=== PATIENT | female | born 1980 | race Caucasian/White ===

== ENCOUNTER 2016-10-08 05:48 | Inpatient (IN) ==
[2016-10-08] MEDS ORDERED: Ringers Solution, Lactated 1,000 ML ONE ×2 (06:04→07:17)
[2016-10-08] MEDS ORDERED: Ondansetron 4 MG/2 ML VIAL IVP PRN ×2 (06:21→11:36)
[2016-10-08] MEDS ORDERED: Metoclopramide 10 MG/2 ML VIAL IVP PRN ×2 (06:21→11:36)
[2016-10-08] MEDS ORDERED: Famotidine 20 MG/2 ML VIAL IVP PRN (06:21)
[2016-10-08] MEDS ORDERED: Naloxone 0.4 MG/ML INJ IVP PRN (06:21)
[2016-10-08] MEDS ORDERED: Ringers Solution, Lactated 1,000 ML IVC SCH (06:30)
[2016-10-08 06:31] LABS: Basophils % 0.2 %; Eosinophils # 0.1 K/mcL (0.0-0.6); Eosinophils % 0.7 %; Hemoglobin 11.1 g/dL (11.5-15.4); Lymphocytes # 3.1 K/mcL (0.6-4.6); Lymphocytes % 24.8 %; Mean Corpuscular HGB Conc 33.6 g/dL (31.6-35.5); Mean Corpuscular Hemoglobin 29.7 pg (28.0-33.3); Mean Corpuscular Volume 88.2 fL (83.0-100.0); Mean Platelet Volume 11.6 fL (9.4-12.4); Monocytes # 0.9 K/mcL (0.0-1.3); Neutrophils # 8.2 K/mcL (1.6-8.9); Platelet Count 159 K/mcL (140-400); Red Blood Count 3.74 M/mcL (3.82-4.97); Red Cell Distribution Width 12.3 % (11.5-14.5); Segmented Neutrophils % 66.3 %
[2016-10-08] MEDS ORDERED: ceFAZolin 2,000 MG in D5% in Water 100 ML IVPB ONE (06:43)
[2016-10-08] MEDS ORDERED: *HR* Meperidine 25 MG/ML SYRINGE IVP PRN (06:51)
[2016-10-08] MEDS ORDERED: *HR* HYDROmorphone (PF) 1 MG/ML SYRINGE IVP PRN ×2 (06:51→13:08)
[2016-10-08] MEDS ORDERED: *HR* Promethazine 25 MG/ML VIAL IVP PRN (06:51)
--- NOTE | 2016-10-08 06:54 | Anesthesia Evaluation PreOp ---
Date of Encounter: 10/08/16 Time of Encounter: 06:51 - Past History Planned Operation: repeat Cardiac History: Denies any Significant Hx Pulmonary History: Denies Any Significant HX PRODUCT APPLICATIONS ENGINEER History: Other (bilateral fingers numbness, and occ right hip pain that ascends to mid back not position dependent. no decending radiculopathy) Other Medical History: Denies Any Significant HX Anesthesia History: No Prior Anesthetic Complications, Past Anesthesia (occ PONV post generals) Alcohol Use: none Drug use: none Medications and Allergies Escitalopram [Lexapro] 20 mg PO 10/08/16 [History] Tablet 1 tab PO DAILY 10/08/16 [History] Allergies No Known Allergies Allergy (Verified 10/08/16 06:21) Anesthesia Results - Labs 10/08/16 06:28 Anesthesia Exam - HEENT Pupil (Motor): Pupils equal Mallampati: II Teeth: Normal Oral Opening: Greater than 3 - PRODUCT APPLICATIONS ENGINEER LOC: Oriented PRODUCT APPLICATIONS ENGINEER Motor: Normal RUE, Normal LUE, Normal RLE, Normal LLE, Normal Face PRODUCT APPLICATIONS ENGINEER Sensory: Normal: RUE, LUE, RLE, LLE, Face - Cardiac Rhythm: Regular Murmur: None - Pulmonary Breath Sounds: bilateral Clear Respiratory Effort: Symmetrical Anesthesia Assess/Plan ASA Score: 2 Modified Elly Scale for Level of Consciousness: Cooperative, oriented, and tranquil Anesthetic Plan: General, Regional Monitoring Plan: Standard Monitors Recovery Plan: PACU
--- NOTE | 2016-10-08 07:02 | History & Physical Report ---
Date of Encounter: 10/08/16 Time of Encounter: 07:01 24 Hour HP Update - Instructions Instructions: If the History and Physical is less than 30 days old and was completed prior to A.M. admission and or procedure and has NOT been updated on calendar day of procedure please complete this update prior to performing procedure. - Update Patient reports changes in Medical Condition: No Changes in examination, assessment, or condition: No Changes in Medication: No Preop tests/diagnostics Reviewed: Yes Surgery Remains Indicated: Yes Consent for Planned Operative Procedure(s) Verified: Yes - Pre-Operative Checklist Preoperative Checklist Indicated: Yes Prophylactic Antibiotic Ordered: Yes Home Medications Include Beta Nilesh: No Is VTE Prophylaxis Indicated?: Yes
[2016-10-08] MEDS ORDERED: *HR* Phenylephrine 10 MG/ML VIAL ONE (07:16)
[2016-10-08] MEDS ORDERED: *HR* FentaNYL (PF) 100 MCG/2 ML VIAL ONE (07:16)
[2016-10-08] MEDS ORDERED: EPHEDrine 50 MG/ML VIAL ONE (07:16)
[2016-10-08] MEDS ORDERED: *HR* Oxytocin 10 UNIT/ML VIAL IM ONE (07:16)
[2016-10-08] MEDS ORDERED: *HR* Morphine Sulfate/PF 5 MG/10 ML AMPUL ONE (07:16)
[2016-10-08] MEDS ORDERED: Ondansetron 4 MG/2 ML VIAL ONE (07:52)
--- NOTE | 2016-10-08 09:02 | OB/GYN Procedure Note ---
Section - Date of procedure: 10/08/16 Preop diagnosis: desires repeat Post-op diagnosis: same Procedure: repeat low transverse Surgeon: Francesca Moore Estimated blood loss (cc): 400 Chimney Supervisor Brick: Nader Waldron Anesthesia Type: Spinal section complications: none Disposition: L&D Recovery Room Specimens: Placenta, Cord blood - Infant (s) A Delivery Date: 10/08/16 Infant Delivery Time: : Presentation: vertex Position: AMIRA Route of delivery: other Gender: Female Viability: Viable Pounds: 7 Ounces: 11 at 1 minute: 7 at 5 minutes: 7 Specimens collected: cord blood Placenta: complete extraction Cord: 3 umbilical vessels - Narrative Narrative: Patient was taken to the operating room and placed in supine position with left uterine displacement following the administration of spinal anesthetic. Skin was then prepped and draped in usual sterile fashion, and a timeout procedure was performed. A Pfannenstiel incision was performed through the previous surgical scar, and extended down to the fascial layer until the abdominal cavity was entered. A bladder flap was then gently created with sharp dissection. A low transverse uterine incision was performed and extended bilaterally with bandage scissors. The membranes were then ruptured with clear fluid present. A viable female was delivered from a vertex presentation with scores of 7 and 7 at 1 and 5 minutes respectively and the infant weighed 7 pounds, 11 ounces. The cord was clamped and cut, and the was handed to the nursery team. A sample of cord blood was obtained and the placenta was manually removed. The uterine cavity was wiped clean with wet lap sponge. The uterine incision was closed in a layered fashion with 0 Vicryl suture in a running locking fashion. Good hemostasis was noted The Paracolic gutters were then gently wiped clean with wet lap sponge. Inspection was then performed with good hemostasis still noted. The fascial layer was closed with 0 PDS Stratafix suture in a running nonlocking fashion. The subcutaneous layer was irrigated with sterile water and then closed with 4-0 Vicryl suture in a running nonlocking fashion, and continuing to close the skin in a running subcuticular fashion. A piece of Dermabond mesh was then applied over the incision site. Patient tolerated procedure well, all sponge needle and instrument counts reported as correct. Estimated blood loss was 400 mL. The urine in the Hope catheter was clear and yellow, and she was taken to recovery room in stable condition.
[2016-10-08] MEDS ORDERED: Simethicone 80 MG TAB.CHEW PO PRN (11:36)
[2016-10-08] MEDS ORDERED: Oxytocin 20 units/ LR 1000 mL 20 UNIT/1,000 ML BAG IVC SCH (11:36)
[2016-10-08] MEDS ORDERED: Measles/Mumps/Rubella Vacc 0.5 ML VIAL SQ ONE (11:36)
[2016-10-08] MEDS ORDERED: Sennosides 8.6 MG TABLET PO PRN (11:36)
[2016-10-08] MEDS ORDERED: *HR* Nalbuphine 20 MG/ML AMPUL IVP PRN (13:08)
[2016-10-08] MEDS ORDERED: *HR* Morphine 2 MG/ML SYRINGE IVP PRN (13:08)
--- NOTE | 2016-10-08 13:08 | Anesthesia Evaluation Post Op ---
Date of Encounter: 10/08/16 Time of Encounter: 13:04 - Vital Signs Vital Signs: vss - Lungs Lungs: Clear Ascult./Percussion - Airway Airway: Non-obstructed - Mental Status Mental Status: Alert & Oriented, Answers Appropriately - Pain Pain Scale used: Cody (Faces) (states just sore, no NSAIDs yet, to be given,) - Nausea Vomiting Nausea Vomiting: Not Present - Hydration Hydration: Ice chips
[2016-10-08] MEDS: Ibuprofen 600 MG TABLET PO PRN (13:29)
[2016-10-08] MEDS: *HR* OxyCODONE/APAP 5/325 TABLET PO PRN ×2 (17:40→22:05)
[2016-10-09] MEDS: Ibuprofen 600 MG TABLET PO PRN ×3 (00:49→19:26)
[2016-10-09 06:24] LABS: Basophils % 0.2 %; Eosinophils # 0.1 K/mcL (0.0-0.6); Eosinophils % 0.6 %; Hematocrit 33.9 % (35.3-44.9); Hemoglobin 11.3 g/dL (11.5-15.4); Immature Granulocytes % 0.6 % (0-4); Lymphocytes # 2.2 K/mcL (0.6-4.6); Lymphocytes % 17.7 %; Mean Corpuscular HGB Conc 33.3 g/dL (31.6-35.5); Mean Corpuscular Hemoglobin 30.1 pg (28.0-33.3); Mean Corpuscular Volume 90.2 fL (83.0-100.0); Mean Platelet Volume 11.1 fL (9.4-12.4); Monocytes # 0.7 K/mcL (0.0-1.3); Monocytes % 5.5 %; Neutrophils # 9.4 K/mcL (1.6-8.9); Platelet Count 134 K/mcL (140-400); Red Blood Count 3.76 M/mcL (3.82-4.97); Red Cell Distribution Width 12.6 % (11.5-14.5); Segmented Neutrophils % 75.4 %
[2016-10-09] MEDS: Prenatal Vit/FA 1 EACH TABLET PO SCH (08:16)
--- NOTE | 2016-10-09 09:23 | OB/GYN Progress Note ---
Date of Encounter: 10/09/16 Time of Encounter: 09:21 - Assessment and Plan (1) Status post delivery Current Visit: Yes Status: Acute s/p RC/S POD #1, doing well, ambulation encouraged, aim for discharge tomorrow AM, cont current inpt care Subjective - Subjective Patient reports: appetite normal, voiding normally, pain well controlled, ambulating normally [place]: doing well Objective - Vital Signs Latest vital signs: Vital Signs Temp Pulse Resp BP Pulse Ox 10/09/16 08:22 14 10/09/16 08:10 98.0 F 75 16 124/76 97 10/09/16 04:30 97.9 F 74 14 123/82 97 10/09/16 00:50 97.7 F 73 16 111/71 97 10/08/16 19:45 97.8 F 73 14 119/79 99 10/08/16 14:30 97.8 F 86 16 126/76 95 10/08/16 13:30 97.6 F 83 16 130/61 95 10/08/16 12:30 97.6 F 88 16 116/79 95 10/08/16 12:00 97.5 F L 76 16 123/77 95 10/08/16 11:30 97.9 F 80 16 107/59 95 Intake and Output 10/08/16 10/09/16 10/09/16 23:59 07:59 15:59 Intake Total 1550 / 1550 300 / 300 Output Total 1900 / 1900 Balance 1550 / 1550 -1900 / -1900 300 / 300 Intake: IV Fluids 850 / 850 Pitocin 20 unit In 1,000 850 / 850 ml @ 125 mls/hr IVC .Q8H [facility] Rx#:[id number] Oral 700 / 700 300 / 300 Output: Catheter 1900 / 1900 Other: Weight 93.4 kg Patient Weight 10/09/16 23:59 Weight 93.4 kg - Exam Lungs: bilateral: normal Chest: Normal S1, Normal S2 Extremities: Present: normal Abdomen: Present: normal appearance Incision: Present: normal, dry, intact Uterus: Present: normal - Labs Labs: Laboratory Results - last 24 hr 10/09/16 06:13 WBC 12.5 H RBC 3.76 L Hgb 11.3 L Hct 33.9 L MCV 90.2 MCH 30.1 MCHC 33.3 RDW 12.6 Plt Count 134 L MPV 11.1 Immature Gran % 0.6 Seg Neutrophils % 75.4 Lymphocytes % 17.7 Monocytes % 5.5 Eosinophils % 0.6 Basophils % 0.2 Neutrophils # 9.4 H Lymphocytes # 2.2 Monocytes # 0.7 Eosinophils # 0.1 Basophils # 0.0
[2016-10-09] MEDS: *HR* OxyCODONE/APAP 5/325 TABLET PO PRN ×3 (13:44→23:19)
[2016-10-10] MEDS: *HR* OxyCODONE/APAP 5/325 TABLET PO PRN ×2 (04:53→08:51)
[2016-10-10] MEDS: Ibuprofen 600 MG TABLET PO PRN (04:53)
--- NOTE | 2016-10-10 07:56 | Discharge Summary ---
Date of Encounter: 10/10/16 Time of Encounter: 07:55 - Discharge Diagnosis (1) Status post delivery Priority: Primary Status: Resolved - Discharge Medications Prescriptions: OxyCODONE/APAP 5/325 [Percocet 5/325 MG] 1 each PO Q4HR PRN #40 tab PRN Reason: Moderate pain 4-6 Ibuprofen [Motrin] 600 mg PO Q6HR PRN #40 tab PRN Reason: Cramping Home Medications: Escitalopram [Lexapro] 20 mg PO 10/08/16 [History] Tablet 1 tab PO DAILY 10/08/16 [History] Ibuprofen [Motrin] 600 mg PO Q6HR PRN #40 tab 10/10/16 [Rx] OxyCODONE/APAP 5/325 [Percocet 5/325 MG] 1 each PO Q4HR PRN #40 tab 10/10/16 [Rx ] Allergies/Adverse Reactions: Allergies No Known Allergies Allergy (Verified 10/08/16 06:21) Data Procedures and tests throughout hospitalization: Laboratory Tests 10/08/16 10/09/16 06:28 06:13 WBC 12.4 H 12.5 H RBC 3.74 L 3.76 L Hgb 11.1 L 11.3 L Hct 33.0 L 33.9 L MCV 88.2 90.2 MCH 29.7 30.1 MCHC 33.6 33.3 RDW 12.3 12.6 Plt Count 159 134 L MPV 11.6 11.1 Immature Gran % 1.0 0.6 Seg Neutrophils % 66.3 75.4 Lymphocytes % 24.8 17.7 Monocytes % 7.0 5.5 Eosinophils % 0.7 0.6 Basophils % 0.2 0.2 Neutrophils # 8.2 9.4 H Lymphocytes # 3.1 2.2 Monocytes # 0.9 0.7 Eosinophils # 0.1 0.1 Basophils # 0.0 0.0 Date of admission: 10/08/16 05:48 Primary care physician: PCP NONE - Patient Status Disposition: Home, Self-Care Condition: Good Functional capacity at discharge: independent ambulation Overall status at discharge: patient is progressing back to baseline - Discharge Instructions Follow Up With: NONE,PCP [Primary Care Provider] - - Diet and Activity Activity: increase activity as tolerated Diet: advance to your usual diet Hospital Course CREDIT RISK ANALYST Time Attestation: Total time spent providing and/or coordinating discharge services: Exam - Constitutional Vitals: Temp Pulse Resp BP Pulse Ox 98.2 F 72 20 125/79 98 10/09/16 19:35 10/09/16 19:35 10/09/16 19:35 10/09/16 19:35 10/09/16 19:35 General appearance IM: A&O X 3 - Respiratory Respiratory exam: Present: CTAB - Cardiovascular Cardiovascular exam IM: Present: RRR - GI/Abdominal GI/Abdominal exam IM: normal bowel sounds Incision: normal, intact - Uterus Position: 2 Fingers Above Umbilicus - Extremities Exam Extremities exam IM: Present: full ROM - Neurological Exam Neurological exam: CN II-XII intact - VTE Documentation of Mechanical Device: Intermittent pneumatic compression device - Attending Attestation ирина covarrubias md facog
[2016-10-10] MEDS: Prenatal Vit/FA 1 EACH TABLET PO SCH (08:51)
[2016-10-10 09:00] VITALS: BP 130/84
== END 2016-10-10 11:12 | disposition home or self-care (01) | DRG 540 ==
LOC: 1NENULAB 05:48 → 1NENUOBS 11:30

== ENCOUNTER → 2018-07-11 17:40 | Observation (INO) ==
--- NOTE | 2018-07-11 16:58 | OB/GYN Progress Note ---
Date of Encounter: 07/11/18 Time of Encounter: 16:57 - Assessment and Plan (1) 37 weeks gestation of Current Visit: Yes Status: Acute Reactive NST Urine pending Patient declines pain medication and/or therapeutic rest Serial vaginal exams pending Anticipate discharge home with labor precautions Follow up in office with routine care and PRN POC per consult with Dr Dilsa (2) Lower back pain Current Visit: Yes Status: Acute Qualifiers: Chronicity: acute Back pain laterality: right Sciatica presence: without sciatica Qualified Code(s): M54.5 - Low back pain (3) NST (non-stress test) reactive Current Visit: Yes Status: Acute Subjective - Subjective Principal diagnosis: Back pain Interval history: Ms Jairo tinoco at 37 weeks and 6 days presents to triage from the office with severe back and right flank pain. She states positive movement. She denies headaches, vision changes, epigastric pain, leaking of fluid, and vaginal discharge/bleeding. She states pain started earlier today and has progressively gotten worse. Per patient she does not dilate with any of her pregnancies and her first ended in a stat c/s due to distress because "her head was being pushed against my pubic bone". Antepartum ROS: movement normal, no contractions Objective - Vital Signs Vital Signs: Intake and Output 07/11/18 07/11/18 07/11/18 07:59 15:59 23:59 Other: Weight 96.615 kg Patient Weight 07/11/18 23:59 Weight 96.615 kg - Exam FHR comments: No contractions per monitor, uterus palpates soft FHTs 120 wtih moderate variability and 15 x 15 accels Abdomen: Present: normal appearance, soft, gravid Uterus: Present: normal. Absent: firm, tenderness Cervical dilation: Closed thick and high per exam in office Comments: No CVA tenderness with palpation
[2018-07-11 17:53] LABS: Bilirubin,Urine Negative (Negative); Blood,Urine Negative (Negative); Clarity,Urine Clear (Clear); Color,Urine Yellow (Yellow); Glucose,Urine (UA) Normal (Normal); Ketones,Urine Trace mg/dL (Negative); Leukocyte Esterase,Urine Negative (Negative); Nitrite,Urine Negative (Negative); Protein,Urine Negative (Neg-Trace); Specific Gravity,Urine 1.009 (1.010-1.025); Urobilinogen,Urine Normal (Normal)
[2018-07-11 18:00] LABS: Amphetamine Screen,Urine Negative ng/mL (Cutoff=1000); Barbiturate Screen,Urine Negative ng/mL (Cutoff=200); Benzodiazepines Screen,Urine Negative ng/mL (Cutoff=200); Cannabinoid Screen,Urine Negative ng/mL (Cutoff = 50); Cocaine Screen,Urine Negative ng/mL (Cutoff= 300); Opiate Screen,Urine Negative ng/mL (Cutoff=300); Phencyclidine Screen,Urine Negative ng/mL (Cutoff=25)
== END | disposition home or self-care (01) ==
LOC: 1NENULAB
PROVIDERS: ADMIT Advanced Practice Midwife; ATTEND Advanced Practice Midwife

== ENCOUNTER 2018-07-19 05:47 | Inpatient (IN) ==
[2018-07-19] MEDS ORDERED: Metoclopramide 10 MG/2 ML VIAL IVP PRN ×2 (06:19→14:12)
[2018-07-19] MEDS ORDERED: Famotidine 20 MG/2 ML VIAL IVP PRN (06:19)
[2018-07-19] MEDS ORDERED: Naloxone 0.4 MG/ML INJ IVP PRN (06:19)
[2018-07-19] MEDS ORDERED: Ringers Solution, Lactated 1,000 ML IVC SCH (06:30)
[2018-07-19 06:38] LABS: Amphetamine Screen,Urine Negative ng/mL (Cutoff=1000); Barbiturate Screen,Urine Negative ng/mL (Cutoff=200)
[2018-07-19 06:39] LABS: Benzodiazepines Screen,Urine Negative ng/mL (Cutoff=300); Cannabinoid Screen,Urine Negative ng/mL (Cutoff = 50); Cocaine Screen,Urine Negative ng/mL (Cutoff= 300); Opiate Screen,Urine Negative ng/mL (Cutoff=300); Phencyclidine Screen,Urine Negative ng/mL (Cutoff=25)
[2018-07-19 06:40] LABS: Basophils % 0.3 %; Eosinophils # 0.1 K/mcL (0.0-0.6); Eosinophils % 0.4 %; Hematocrit 32.3 % (35.3-44.9); Hemoglobin 10.9 g/dL (11.5-15.4); Immature Granulocytes % 0.7 % (0-4); Lymphocytes # 2.8 K/mcL (0.6-4.6); Lymphocytes % 23.9 %; Mean Corpuscular HGB Conc 33.7 g/dL (31.6-35.5); Mean Corpuscular Hemoglobin 30.3 pg (28.0-33.3); Mean Corpuscular Volume 89.7 fL (83.0-100.0); Mean Platelet Volume 11.2 fL (9.4-12.4); Monocytes # 0.8 K/mcL (0.0-1.3); Monocytes % 6.5 %; Neutrophils # 7.9 K/mcL (1.6-8.9); Platelet Count 171 K/mcL (140-400); Red Cell Distribution Width 12.1 % (11.5-14.5); Segmented Neutrophils % 68.2 %
--- NOTE | 2018-07-19 07:12 | OB/GYN History & Physical ---
Date of Encounter: 07/19/18 Time of Encounter: 07:07 Assessment and Plan (1) 39 weeks gestation of Current visit: Yes Status: Acute (2) Maternal care for low transverse scar from previous delivery Current visit: Yes Status: Acute (3) AMA (advanced maternal age) multigravida 35+ Current visit: Yes Status: Acute Qualifiers: Trimester: third trimester Qualified Code(s): O09.523 - Supervision of elderly multigravida, third trimester (4) Rubella non-immune status, antepartum Current visit: Yes Status: Acute History of Present Illness Chief complaint: Presents for repeat section HPI: Ms. Gill is a 38 year old female with EDC 07/26/18 at 39 weeks who presents to L&D for repeat C/S and sterilization. 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 O positive, Varicella Immune, Rubella Non-Immune, Rh positive. GBS negative. Past Med Surg Social Fam HX - Past Medical History Medical history: no medical history Additional medical history: hypoglycemia Psychiatric history: depression - Past Surgical History Surgical History: , other Additional surgical history: tummy tuck, breast augmentation - Social History Smoking Status: Never smoker Smokeless Tobacco Status: No Alcohol use: none Drug use: none - Family History Mother Adopted: No Living Status: Still Living Hx Family Cardiac Disorders: Yes (htn) Hx Family Respiratory Disorders: Yes Hx Family Cancer: No Hx Family GI Disorders: No Hx Family Genitourinary Disorders: No Hx Family Endocrine Disorder: No Hx Family Musculoskeletal Disorders: No Hx Family Neuromuscular Disorders: No Hx Family Neurologic Disorders: No Hx Family HEENT Disorders: No Hx Family Autoimmune Disorders: No Hx Family Reproductive Disorders: No Hx Family Psychosocial Disorders: No Hx Family Medical Disorders: No Obstetrical History - Pregnancies : 5 Medications and Allergies Tablet 1 tab PO DAILY 10/08/16 [History] Allergy/AdvReac Type Severity Reaction Status Date / Time No Known Allergies Allergy Verified 10/08/16 06:21 Review of System OB All systems PM: reviewed and no additional remarkable complaints except as stated (as related to ) Exam - Vital Signs Vital signs: Initial Vital Signs Pulse Resp BP 81 15 128/64 07/19/18 06:06 07/19/18 06:06 07/19/18 06:06 - Constitutional Constitutional: well developed, well nourished - HEENT HEENT: Normocephaly - Cardiovascular Cardiovascular exam: RRR - Abdomen Abdomen: Present: gravid Results Result Diagrams: 07/19/18 06:23 Abnormal lab results WBC 11.5 K/mcL (4.3-11.1) H 07/19/18 06:23 RBC 3.60 M/mcL (3.82-4.97) L 07/19/18 06:23 Hgb 10.9 g/dL (11.5-15.4) L 07/19/18 06:23 Hct 32.3 % (35.3-44.9) L 07/19/18 06:23 All other labs normal. - VTE Reasons for not Prescribing Prophylaxis: Treatment not Indicated - Low risk for VTE
--- NOTE | 2018-07-19 07:39 | Anesthesia Evaluation PreOp ---
Date of Encounter: 07/19/18 Time of Encounter: 07:25 - Past History Planned Operation: Spinal for repeat csection Cardiac History: Denies any Significant Hx Pulmonary History: Denies Any Significant HX COAL HAULER History: Denies Any Significant HX Other Medical History: Denies Any Significant HX, GERD, Other (HPV, anxiety, depression) Anesthesia History: No Prior Anesthetic Complications, Past Anesthesia (Liposuction, breast augmentation, abdominoplasty) : Yes Alcohol Use: none Drug use: none Medications and Allergies Tablet 1 tab PO DAILY 10/08/16 [History] Allergy/AdvReac Type Severity Reaction Status Date / Time No Known Allergies Allergy Verified 10/08/16 06:21 - Meds/Allergy Pre-op Review Medications Reviewed: Yes Allergies Reviewed: Yes Beta Blockers on Current Med List: No Anesthesia Results - Labs 07/19/18 06:23 Anesthesia Exam BP 116/70 P 75 R 16 T 98.8 Height: 5'9" Weight: 96.3kg NPO (# of Hours): 8 Pain Scale: 0 Pain Scale Used: Numeric (1 - 10) - HEENT Pupil (Motor): Pupils equal Mallampati: II Teeth: Normal Oral Opening: Greater than 3 - COAL HAULER LOC: Oriented COAL HAULER Motor: Normal RUE, Normal LUE, Normal RLE, Normal LLE, Normal Face COAL HAULER Sensory: Normal: RUE, LUE, RLE, LLE, Face - Cardiac Rhythm: Regular Murmur: None JVD: No Carotid Bruit: No - Pulmonary Breath Sounds: bilateral Clear Respiratory Effort: Symmetrical Anesthesia Assess/Plan ASA Score: 2 Level of consciousness: Cooperative Anesthetic Plan: Spinal Autologous Blood: Yes Monitoring Plan: Standard Monitors Recovery Plan: PACU
[2018-07-19] MEDS ORDERED: *HR* Morphine Sulfate/PF 10 MG/10 ML AMPUL ONE (07:46)
[2018-07-19] MEDS ORDERED: Ondansetron 4 MG/2 ML VIAL ONE (07:53)
[2018-07-19] MEDS ORDERED: *HR* Oxytocin 10 UNIT/ML VIAL IM ONE ×2 (07:53→09:17)
[2018-07-19] MEDS ORDERED: Dexamethasone 4 MG/ML VIAL ONE (07:53)
--- NOTE | 2018-07-19 08:41 | Anesthesia Procedures ---
Date of Encounter: 07/19/18 Time of Encounter: 08:06 Procedures: Anesthesia - Epidural/Spinal Patient ID/Chart reviewed: Yes Patient examined: Yes OB Eval: Gestational age: 39 OB Eval: : 5 OB Eval: Hx Para: 4 OB Eval: Contractions: Non-stressed pattern Consent Obtained: Yes Supplemental Oxygen: None/Room Air Site Prep: Aseptic Technique, Sterile prep and drape, Povidone-Iodine 1% Patient position: upright Local Anesthetic: Lidocaine 1% Amount of Local Anesthetic used: 5 Interspace Used: L3-L4 Blood: No CSF: Yes Paresthesia: No Spinal Needle Gauge: 25 Spinal Dose: Bupivicaine 0.75% 1.6ml Morphine 300mcg Procedure: Intrathecal dose administered 2nd pass in upright position. 1st pass patient movement. Pt tolerated well. T4 level. VSS Vitals + FHT's: See anesthesia record
[2018-07-19] MEDS ORDERED: Ringers Solution, Lactated 2,000 ML ONE (09:17)
--- NOTE | 2018-07-19 09:33 | OB/GYN Procedure Note ---
Section - Date of procedure: 07/19/18 Preop diagnosis: desires repeat , desires sterilization Post-op diagnosis: same Procedure: repeat low transverse, bilateral tubal ligation Surgeon: Francesca Moore Was there an assistant track coach present: No Anesthesia Type: Spinal section complications: none Disposition: L&D Recovery Room Specimens: Placenta, Cord blood, Right tube segment, Left tube segment - (s) Infant A Infant Delivery Date: 07/19/18 Infant Delivery Time: 08:31 Presentation: vertex Position: unknown Route of delivery: other Gender: Female Viability: Viable Pounds: 6 Ounces: 5 Gram Weight: 2855 kg at 1 minute: 7 at 5 minutes: 8 Shoulder Dystocia: not encountered Specimens collected: cord blood Placenta: complete extraction Cord: 3 umbilical vessels - Narrative Narrative: Patient was taken to the operating room and placed in supine position with left uterine displacement following the administration of spinal anesthetic. Skin was then prepped and draped in usual sterile fashion, and a timeout procedure was performed. A Pfannenstiel incision was performed removing the previous surgical scar, and extended down to the fascial layer until the abdominal cavity was entered. A low transverse uterine incision was performed and extended bilaterally with bandage scissors. The membranes were then ruptured with clear fluid present. A viable female infant was delivered from a vertex presentation with scores of 7 and 8 at 1 and 5 minutes respectively and the weighed 6 pounds and 5 ounces. The cord was clamped and cut, and the infant was handed to the nursery team. A sample of cord blood was obtained and the placenta was manually removed. The uterine cavity was wiped clean with wet lap sponge. The uterine incision was closed in a layered fashion with 0 Vicryl suture in a running locking fashion. Good hemostasis was noted.The patient and her were then asked if they still wanted to proceed with a tubal sterilization and they agreed. The left fallopian tube was first identified grasped and traced distally until the fimbriated end was seen and a distal portion tube was doubly ligated with 0 plain suture to incorporate the fimbriated end and the specimen was removed. Good hemostasis was noted and the procedure was repeated in a similar fashion for the right fallopian tube. Again good hemostasis was present. The Paracolic gutters were then gently wiped clean with wet lap sponge. Inspection was then performed with good hemostasis still noted. The fascial layer was closed with 0 PDS suture in a running nonlocking fashion. The subcutaneous layer was irrigated with sterile water and then closed with 3-0 chromic suture in a running, non-locking fashion. The superficial subcutaneous layer was then closed with 4-0 Vicryl suture in a running nonlocking fashion, and continuing to close the skin in a running subcuticular fashion. A piece of Dermabond mesh was then applied over the incision site. Patient tolerated procedure well, all sponge needle and instrument counts reported as correct. Estimated blood loss was 400 mL. The urine in the Hope catheter was clear and yellow, and she was taken to recovery room in stable condition.
[2018-07-19] MEDS ORDERED: *HR* OxyCODONE Immed Rel 5 MG TABLET PO PRN (09:41)
[2018-07-19] MEDS ORDERED: *HR* Promethazine 25 MG/ML VIAL IVP PRN (09:41)
[2018-07-19] MEDS ORDERED: Acetaminophen IV 1,000 MG/100 ML INFUS..BTL IVPB ONE (10:11)
[2018-07-19] MEDS ORDERED: Simethicone 80 MG TAB.CHEW PO PRN (14:12)
[2018-07-19] MEDS ORDERED: Measles/Mumps/Rubella Vacc 0.5 ML VIAL SQ ONE (14:12)
[2018-07-19] MEDS ORDERED: Ondansetron 4 MG/2 ML VIAL IVP PRN (14:12)
[2018-07-19] MEDS ORDERED: Oxytocin 20 units/ LR 1000 mL 20 UNIT/1,000 ML BAG IVC SCH (14:12)
[2018-07-19] MEDS: *HR* OxyCODONE/APAP 5/325 TABLET PO PRN ×2 (14:42→20:10)
--- NOTE | 2018-07-19 18:03 | Anesthesia Evaluation Post Op ---
Date of Encounter: 07/19/18 Time of Encounter: 12:00 - Vital Signs Vital Signs: Vital Signs Pulse Rate 81 07/19/18 06:06 Respiratory Rate 15 07/19/18 06:06 Blood Pressure 128/64 07/19/18 06:06 Temperature 98.1 F 07/19/18 17:07 Pulse Rate 76 07/19/18 17:07 Respiratory Rate 16 07/19/18 17:07 Blood Pressure 117/67 07/19/18 17:07 O2 Sat by Pulse Oximetry 97 07/19/18 17:07 - Lungs Lungs: Clear Ascult./Percussion - Airway Airway: Non-obstructed - Cardiovascular Regular Rate - Mental Status Mental Status: Alert & Oriented, Answers Appropriately - Pain Pain Scale: 4 Pain Scale used: Numeric (1 - 10) - Nausea Vomiting Nausea Vomiting: Not Present - Hydration Hydration: Tolerates oral liquids, Hope catheter - Discharge PostOp Status: Transfer Patient to floor
[2018-07-19] MEDS: Ibuprofen 600 MG TABLET PO PRN (20:08)
[2018-07-20] MEDS: *HR* OxyCODONE/APAP 5/325 TABLET PO PRN ×4 (03:12→20:30)
[2018-07-20] MEDS: Ibuprofen 600 MG TABLET PO PRN ×2 (03:12→16:24)
[2018-07-20 05:46] LABS: Basophils % 0.1 %; Eosinophils # 0.1 K/mcL (0.0-0.6); Eosinophils % 0.4 %; Hematocrit 30.9 % (35.3-44.9); Hemoglobin 10.5 g/dL (11.5-15.4); Immature Granulocytes % 0.7 % (0-4); Lymphocytes # 3.4 K/mcL (0.6-4.6); Lymphocytes % 24.3 %; Mean Corpuscular Hemoglobin 30.7 pg (28.0-33.3); Mean Corpuscular Volume 90.4 fL (83.0-100.0); Mean Platelet Volume 11.6 fL (9.4-12.4); Monocytes # 0.9 K/mcL (0.0-1.3); Monocytes % 6.8 %; Neutrophils # 9.3 K/mcL (1.6-8.9); Platelet Count 170 K/mcL (140-400); Red Blood Count 3.42 M/mcL (3.82-4.97); Red Cell Distribution Width 12.2 % (11.5-14.5); Segmented Neutrophils % 67.7 %
[2018-07-20] MEDS: Prenatal Vit/FA 1 EACH TABLET PO SCH (08:22)
--- NOTE | 2018-07-20 14:38 | OB/GYN Progress Note ---
Date of Encounter: 07/20/18 Time of Encounter: 08:17 - Assessment and Plan (1) Status post delivery Current Visit: Yes Status: Acute POD #1, Meeting milestones as expected. Lochia normal, no large clots noted. Pain well controlled with prescribed medication, admits to diffuse abdominal tenderness. Initial complaint of nausea, now resolved and tolerating normal diet. Denies passing gas, and has not yet had a BM, bowel sounds present. Voiding and ambulating without difficulty. well, baby's glucose being monitored. Continue with current management. Likely DC tomorrow. I have seen and evaluated this patient separately and agree with this assessment and plan. Thad Olivares CNM Subjective - Subjective Principal diagnosis: s/p Patient reports: appetite normal, voiding normally, pain well controlled, ambulating normally [place]: doing well (sugars being monitored dt initially being low), nursing well Objective - Vital Signs Latest vital signs: Vital Signs Temp Pulse Resp BP Pulse Ox 07/20/18 04:30 97.9 F 73 16 115/76 98 07/20/18 00:00 98.0 F 78 16 101/65 96 07/19/18 19:50 98.3 F 73 16 108/71 97 07/19/18 17:07 98.1 F 76 16 117/67 97 Intake and Output 07/19/18 07/20/18 07/20/18 23:59 07:59 15:59 Intake Total 600 / 600 Output Total 1600 / 1600 500 / 850 350 / 850 Balance -1600 / -1000 100 / -250 -350 / -250 Intake: Oral 600 / 600 Output: Urine 350 / 350 Emesis 700 / 700 Catheter 900 / 900 500 / 500 Other: # Voids 1 Weight 94.801 kg Patient Weight 07/20/18 23:59 Weight 94.801 kg - Exam Lungs: bilateral: normal Chest: Normal S1, Normal S2 Extremities: Present: normal, edema (non-pitting edema in feet) Abdomen: Present: soft, tenderness (mild diffuse tenderness to palpation) Incision: Present: normal, dry, intact. Absent: warm Uterus: Present: firm Fundal Height: 2 (fingers below umbilicus) - Labs Labs: Laboratory Results - last 24 hr 07/20/18 04:42 WBC 13.8 H RBC 3.42 L Hgb 10.5 L Hct 30.9 L MCV 90.4 MCH 30.7 MCHC 34.0 RDW 12.2 Plt Count 170 MPV 11.6 Immature Gran % 0.7 Seg Neutrophils % 67.7 Lymphocytes % 24.3 Monocytes % 6.8 Eosinophils % 0.4 Basophils % 0.1 Neutrophils # 9.3 H Lymphocytes # 3.4 Monocytes # 0.9 Eosinophils # 0.1 Basophils # 0.0
[2018-07-20] MEDS ORDERED: Lanolin 7 G OINT...G. TP PRN (17:00)
[2018-07-21 00:38] VITALS: BP 132/85
[2018-07-21] MEDS: Ibuprofen 600 MG TABLET PO PRN ×2 (00:52→06:44)
[2018-07-21] MEDS: *HR* OxyCODONE/APAP 5/325 TABLET PO PRN ×3 (00:52→11:19)
[2018-07-21] MEDS: Prenatal Vit/FA 1 EACH TABLET PO SCH (08:11)
--- NOTE | 2018-07-21 08:13 | Discharge Summary ---
Date of Encounter: 07/21/18 Time of Encounter: 08:12 - Discharge Diagnosis (1) Status post delivery Priority: Primary Status: Acute Comments: 38 y/o F POD4 or planned repeat C/S and tubal ligation recovering well and eager to go home. Reports pain well controlled on opioid medication and nausea resolved. She denies BM but admits to flatus and tolerating PO. Bleeding slowed and clots rare. Wound doing well with out bleeding. Breast feeding well but needed to supplement due to hypoglycemia in . (2) Breast feeding status of mother Priority: Secondary Status: Acute Comments: Pump at home (3) AMA (advanced maternal age) multigravida 35+ Priority: Secondary Status: Acute Qualifiers: Trimester: third trimester Qualified Code(s): O09.523 - Supervision of elderly multigravida, third trimester (4) Status post tubal ligation at time of delivery, current hospitalization Priority: Primary Status: Acute - Discharge Medications Prescriptions: New Docusate [Colace] 100 mg PO BID #60 capsule Simethicone [Gas-X] 80 mg PO TID PRN tab.chew PRN Reason: Dyspepsia Lanolin [Lansinoh] 1 appl TP TID PRN oint...g. PRN Reason: bilateral nipples Ibuprofen [Motrin] 600 mg PO Q6HR PRN #60 tablet PRN Reason: Cramping OxyCODONE/APAP 5/325 [Percocet 5/325 MG] 1 each PO Q4HR PRN 7 Days #20 tablet PRN Reason: Moderate pain 4-6 Ondansetron ODT [Zofran ODT] 4 mg SL Q8HR #14 tab.rapdis Prenat Vit Comb.10/Iron/FA/Dha [Vitafol-Ob+Dha Combo Pack] 1 each PO DAILY #30 combo..pkg Continued Tablet 1 tab PO DAILY #30 Home Medications: Docusate [Colace] 100 mg PO BID #60 capsule 07/21/18 [Rx] Ibuprofen [Motrin] 600 mg PO Q6HR PRN #60 tablet 07/21/18 [Rx] Lanolin [Lansinoh] 1 appl TP TID PRN oint...g. 07/21/18 [Rx] Ondansetron ODT [Zofran ODT] 4 mg SL Q8HR #14 tab.rapdis 07/21/18 [Rx] OxyCODONE/APAP 5/325 [Percocet 5/325 MG] 1 each PO Q4HR PRN 7 Days #20 tablet 07/21/18 [Rx] Prenat Vit Comb.10/Iron/FA/Dha [Vitafol-Ob+Dha Combo Pack] 1 each PO DAILY #30 combo..pkg 07/21/18 [Rx] Tablet 1 tab PO DAILY #30 07/21/18 [Rx] Simethicone [Gas-X] 80 mg PO TID PRN tab.chew 07/21/18 [Rx] Allergies/Adverse Reactions: Allergy/AdvReac Type Severity Reaction Status Date / Time No Known Allergies Allergy Verified 10/08/16 06:21 Data Procedures and tests throughout hospitalization: Laboratory Tests 07/19/18 07/19/18 07/19/18 06:23 06:23 10:36 WBC 11.5 H RBC 3.60 L Hgb 10.9 L Hct 32.3 L MCV 89.7 MCH 30.3 MCHC 33.7 RDW 12.1 Plt Count 171 MPV 11.2 Immature Gran % 0.7 Seg Neutrophils % 68.2 Lymphocytes % 23.9 Monocytes % 6.5 Eosinophils % 0.4 Basophils % 0.3 Neutrophils # 7.9 Lymphocytes # 2.8 Monocytes # 0.8 Eosinophils # 0.1 Basophils # 0.0 POC Glucose 96 Urine Opiates Screen Negative Ur Barbiturates Screen Negative Ur Phencyclidine Scrn Negative Ur Amphetamines Screen Negative U Benzodiazepines Scrn Negative Urine Cocaine Screen Negative U Marijuana (THC) Screen Negative Ur Drug Screen Interp See Below 07/20/18 04:42 WBC 13.8 H RBC 3.42 L Hgb 10.5 L Hct 30.9 L MCV 90.4 MCH 30.7 MCHC 34.0 RDW 12.2 Plt Count 170 MPV 11.6 Immature Gran % 0.7 Seg Neutrophils % 67.7 Lymphocytes % 24.3 Monocytes % 6.8 Eosinophils % 0.4 Basophils % 0.1 Neutrophils # 9.3 H Lymphocytes # 3.4 Monocytes # 0.9 Eosinophils # 0.1 Basophils # 0.0 POC Glucose Urine Opiates Screen Ur Barbiturates Screen Ur Phencyclidine Scrn Ur Amphetamines Screen U Benzodiazepines Scrn Urine Cocaine Screen U Marijuana (THC) Screen Ur Drug Screen Interp Date of admission: 07/19/18 05:47 Primary care physician: Chalo Ramos MD Discharging clinician: Bianca Coles date of discharge: 07/21/18 - Patient Status Disposition: Home, Self-Care Functional capacity at discharge: independent ambulation Overall status at discharge: patient is progressing back to baseline - Discharge Instructions Follow Up With: Chalo Ramos MD [Primary Care Provider] - Francesca Moore DO [Partnered Physician] - - Diet and Activity Activity: increase activity as tolerated Diet: advance to your usual diet Hospital Course Reason for admission: section Delivery: section Episiotomy: none Laceration: none Other procedures: tubal ligation complications: none Discharge diagnosis: IUP at term delivered baby: female Hospital course: Section - Date of procedure: 07/19/18 Preop diagnosis: desires repeat , desires sterilization Post-op diagnosis: same Procedure: repeat low transverse, bilateral tubal ligation Surgeon: Francesca Moore Was there an mobile unit assistant present: No Anesthesia Type: Spinal section complications: none Disposition: L&D Recovery Room Specimens: Placenta, Cord blood, Right tube segment, Left tube segment - Infant (s) Infant A Delivery Date: 07/19/18 Delivery Time: 08:31 Presentation: vertex Position: unknown Route of delivery: other Gender: Female Viability: Viable Pounds: 6 Ounces: 5 Gram Weight: 2855 kg at 1 minute: 7 at 5 minutes: 8 Shoulder Dystocia: not encountered Specimens collected: cord blood Placenta: complete extraction Cord: 3 umbilical vessels - Narrative Narrative: Patient was taken to the operating room and placed in supine position with left uterine displacement following the administration of spinal anesthetic. Skin was then prepped and draped in usual sterile fashion, and a timeout procedure was performed. A Pfannenstiel incision was performed removing the previous surgical scar, and extended down to the fascial layer until the abdominal cavity was entered. A low transverse uterine incision was performed and extended bilaterally with bandage scissors. The membranes were then ruptured with clear fluid present. A viable female infant was delivered from a vertex presentation with scores of 7 and 8 at 1 and 5 minutes respectively and the weighed 6 pounds and 5 ounces. The cord was clamped and cut, and the infant was handed to the nursery team. A sample of cord blood was obtained and the placenta was manually removed. The uterine cavity was wiped clean with wet lap sponge. The uterine incision was closed in a layered fashion with 0 Vicryl suture in a running locking fashion. Good hemostasis was noted.The patient and her were then asked if they still wanted to proceed with a tubal sterilization and they agreed. The left fallopian tube was first identified grasped and traced distally until the fimbriated end was seen and a distal portion tube was doubly ligated with 0 plain suture to incorporate the fimbriated end and the specimen was removed. Good hemostasis was noted and the procedure was repeated in a similar fashion for the right fallopian tube. Again good hemostasis was present. The Paracolic gutters were then gently wiped clean with wet lap sponge. Inspection was then performed with good hemostasis still noted. The fascial layer was closed with 0 PDS suture in a running nonlocking fashion. The subcutaneous layer was irrigated with sterile water and then closed with 3-0 chromic suture in a running, non-locking fashion. The superficial subcutaneous layer was then closed with 4-0 Vicryl suture in a running nonlocking fashion, and continuing to close the skin in a running subcuticular fashion. A piece of Dermabond mesh was then applied over the incision site. Patient tolerated procedure well, all sponge needle and instrument counts reported as correct. Estimated blood loss was 400 mL. The urine in the Hope catheter was clear and yellow, and she was taken to recovery room in stable condition. Time Attestation: Total time spent providing and/or coordinating discharge services: - VTE Reasons for not Prescribing Prophylaxis: Treatment not Indicated - Low risk for VTE Documentation of Mechanical Device: Intermittent pneumatic compression device - Attending Attestation I have seen and examined patient independent of resident exam. I agree with the assessment and plan as outlined. Pt doing well , meeting all milestones. She reports good mood. No complaints. Plan for discharge home today. Exam - Constitutional Vitals: Temp Pulse Resp BP Pulse Ox 97.6 F 65 16 132/85 99 07/21/18 08:02 07/21/18 08:02 07/21/18 08:02 07/20/18 20:27 07/21/18 08:02 General appearance IM: A&O X 3, no acute distress, answers questions appropriately - Respiratory Respiratory exam: Present: CTAB. Absent: accessory muscle use, wheezes - Cardiovascular Cardiovascular exam IM: Present: RRR. Absent: diastolic murmur, systolic murmur - GI/Abdominal GI/Abdominal exam IM: hyperactive bowel sounds Incision: normal, dry, intact - Uterine Tone: Firm Uterus Position: 2 Fingers Below Umbilicus, Midline - Extremities Exam Extremities exam IM: Present: full ROM, radial pulses palpable and symmetrical. Absent: calf tenderness, pedal edema - Neurological Exam Neurological exam: alert, oriented X3, no focal deficits
== END 2018-07-21 12:12 | disposition home or self-care (01) | DRG 540 ==
LOC: 1NENULAB 05:47 → 1NENUOBS 13:35